=== PATIENT | male | born 1975 | race Caucasian/White ===

== ENCOUNTER → 2018-01-07 | Outpatient (CLI) | payer OTHER ==
[2018-01-07 10:22] LABS: Basophils # (A) 0.1 k/uL (0-0.2); Basophils % (A) 1 %; Eosinophils # (A) 0.3 k/uL (0-0.7); Eosinophils % (A) 3 %; HCT 43.3 % (39.0-53.0); HGB 14.6 gm/dL (13.0-17.5); Lymphocytes # (A) 2.3 k/uL (1.0-4.8); Lymphocytes % (A) 26 %; MCH 32.4 pg (25.0-35.0); MCHC 33.6 g/dL (31.0-37.0); MCV 96.6 fL (80.0-100.0); Mean Platelet Volume 7.5; Monocytes # (A) 0.5 k/uL (0-1.0); Monocytes % (A) 6 %; Neutrophils # (A) 5.4 k/uL (1.3-7.7); Neutrophils % (A) 62 %; Platelet Count 373 k/uL (150-450); RBC 4.49 m/uL (4.30-5.90); RDW 12.2 % (11.5-15.5); WBC 8.7 k/uL (3.8-10.6)
[2018-01-07 10:23] LABS: Anion Gap 13 mmol/L; Blood Urea Nitrogen 13 mg/dL (9-20); Calcium 10.1 mg/dL (8.4-10.2); Carbon Dioxide 31 mmol/L (22-30); Chloride 102 mmol/L (98-107); Glucose 84 mg/dL (74-99); Sodium 146 mmol/L (137-145)
== END | disposition home or self-care (01) ==
LOC: LABWHC1 09:43
PROVIDERS: ATTEND Orthopaedic Surgery
DX: D59.9 Acquired hemolytic anemia, unspecified (principal)
CPT/HCPCS: 36415; 80048; 85025

== ENCOUNTER 2024-04-06 13:13 | Emergency (ER) | payer SELFPAY ==
[~2024-04-06 13:13] MED LIST: EPINEPHrine 10 ML SYRINGE (0.1 MG/ML) ONE; NOREPINEPHRINE 1 MG/ML 4 ML VIAL IV ONE; SODIUM BICARB 8.4% 50 ML SYR (1 MEQ/ML) ONE; SODIUM CHLORIDE 0.9% 250 ML BAG ONE
[2024-04-06 13:20] LABS: Glucose,Whole Blood 78 mg/dL (70-110)
[2024-04-06] MEDS ORDERED: SODIUM CHLORIDE 0.9% 1,000 ML IV STA (13:25)
[2024-04-06] MEDS ORDERED: MIDAZOLAM 1 MG/ML 5 ML VIAL IV STA (13:26)
[2024-04-06] MEDS ORDERED: NOREPINEPHRINE 4 MG in SODIUM CHLORIDE 0.9% 250 ML IV ONE (13:33)
[2024-04-06 13:34] LABS: HCT 36.6 % (39.0-53.0); Hypochromasia Marked; MCH 31.1 pg (25.0-35.0); MCHC 30.1 g/dL (31.0-37.0); MCV 103.3 fL (80.0-100.0); Macrocytosis Slight; Mean Platelet Volume 8.9; Platelet Count 213 k/uL (150-450); RBC 3.54 m/uL (4.30-5.90); RDW 12.9 % (11.5-15.5)
--- NOTE | 2024-04-06 13:37 | ED ---
Trauma HPI - General Stated Complaint: Suicide Attempt Time Seen by Provider: 04/06/24 13:25 Source: RN notes reviewed, old records reviewed Mode of arrival: EMS Limitations: altered mental status, physical limitation - History of Present Illness Initial Comments: 48-year-old male to the ER for evaluation today. Patient presents today for evaluation regards to suspected suicide, patient allegedly had been going through some increased life stressors with breaking up of relationship as well as facing incarceration. Allegedly. Patient was found to have hung himself on unknown amount of time, EMS was called by neighbor Patient presents by EMS initially found without pulse did have return of spontaneous circulation and brought to the hospital MD Complaint: other -: unknown Loss of Consciousness: yes Location: neck Severity scale (1-10): 10 Consistency: constant Context: other (suicide attempt) Associated Symptoms: denies other symptoms Treatments Prior to Arrival: IV/IO, intubation, CPR, cervical collar, spinal immobilization - Related Data Allergies Allergy/AdvReac Type Severity Reaction Status Date / Time Unable to Assess Allergy Verified 04/06/24 13:41 Review of Systems ROS Statement: Those systems with pertinent positive or pertinent negative responses have been documented in the HPI. ROS Other: All systems not noted in ROS Statement are negative. General Exam - General Exam Comments Initial Comments: GCS of 3 unresponsive Significant circumferential ligature tomlinson Limitations: altered mental status, physical limitation General appearance: obtunded, in distress Head exam: Absent: atraumatic (Does have strangulation stewart around his neck), normocephalic, normal inspection Eye exam: Present: other (Fixed and dilated) Respiratory exam: Present: other (apnea) Psychiatric exam: Present: normal affect Skin exam: Present: other (Does have signs of a asphyxiation, significantly pale face) Course Vital Signs 04/06/24 04/06/24 04/06/24 13:13 13:40 13:58 Temperature 96.7 F L Fraction of 100 100 Inspired Oxygen (FIO2) - Reevaluation(s) Reevaluation #1: 04/06/24 13:50 Records reviewed Level 1 and Priority 1 trauma was paged prehospital Reevaluation #2: 04/06/24 13:51 Patient initially did again have return of spontaneous circulation here in the emergency department Patient did lose his pulse after epinephrine, bradycardia, Patient was given second round of CPR and ACLS and at this time had ventricular fibrillation No pulse pupils remained fixed and dilated Patient is pronounced with cardiac standstill on ultrasound Reevaluation #3: MDM differential Traumatic Arest, CPA Hypoxia,Hacidosis,Hypoglycemia,Hyper/oKalemia,Hypotension Trauma,TensionPtx,Thrombosis,Toxins,Tamponade Reevaluation #4: Was pt. sent in by a medical professional or institution ([facility] De Los [facility], ASSISTANT [employer]ENDER, urgent care, hospital, or fpc...) When possible be specific @ -no Did you speak to anyone other than the patient for history (EMS, parent, family, police, friend...)? What history was obtained from this source @ -no Did you review nursing and triage notes (agree or disagree)? Why? @ -agree Are old charts reviewed (outside hosp., previous admission, EMS record, old EKG, old radiological studies, urgent care reports/EKG's, fpc records)? Report findings @ -yes Differential Diagnosis (chest pain, altered mental status, abdominal pain women, abdominal pain men, vaginal bleeding, weakness, fever, dyspnea, syncope, headache, dizziness, GI bleed, back pain, seizure, CVA, palpatations, mental health, musculoskeletal)? @ -prior EKG interpreted by me (3pts min.). @ -yes X-rays interpreted by me (1pt min.). @ -yes negative for acute disease CT interpreted by me (1pt min.). @ -no U/S interpreted by me (1pt. min.). @ -no What testing was considered but not performed or refused? (CT, X-rays, U/S, labs)? Why? @ -none What meds were considered but not given or refused? Why? @ -none Did you discuss the management of the patient with other professionals (ramsse madera i.e. [facility] De Los Santos, ASSISTANT [employer] PUBLIC DEFENDER, lab, RT, psych nurse, high school social science teacher, complaint operator, teacher, audit officer, rn case manager)? Give summary @ -no Was smoking cessation discussed for >3mins.? @ -no Were there social determinants of health that impacted care today? How? (Homelessness, low income, unemployed, alcoholism, drug addiction, transportation, low edu. Level, literacy, decrease access to med. care, [facility], rehab)? @ -none Was there de-escalation of care discussed even if they declined (Discuss DNR or withdrawal of care, Hospice)? DNR status @ -no What co-morbidities impacted this encounter? (DM, HTN, Smoking, COPD, CAD, Cancer, CVA, ARF, Chemo, Hep., AIDS, mental health diagnosis, sleep apnea, morbi d obesity)? @ -none Was patient admitted / discharged? Hospital course, mention meds given and rout e, prescriptions, significant lab abnormalities, going to OR and other pertinent info. @ - Was critical care preformed (if so, how long)? @ -no Undiagnosed new problem with uncertain prognosis? @ -no Drug Therapy requiring intensive monitoring for toxicity (Heparin, Nitro, Insulin, Cardizem)? @ -no Were any procedures done? @ -no Diagnosis/symptom? @ - Acute, or Chronic, or Acute on Chronic? @ -Acute Uncomplicated (without systemic symptoms) or Complicated (systemic symptoms)? @ -Complicated Side effects of treatment? @ -no Exacerbation, Progression, or Severe Exacerbation? @ -exacerbation Poses a threat to life or bodily function? How? (Chest pain, [place], [place], pneumonia, PE, COPD, DKA, ARF, appy, cholecystitis, CVA, Diverticulitis, Homicidal, Suicidal, threat to staff... and all critical care pts) @ -yes - Consultations Consultation #1: Trauma surgery did see the patient here in the hospital and in the emergency department Consultation #2: Spoke with medical charge entry specialist Procedures - FAST Exam Fluid in Morison's pouch: No Fluid in Splenorenal Junction: No Fluid around bladder, Transverse view: No Fluid around bladder, Sagittal view: No Limited Echocardiogram view: subxiphoid (Subxiphoid exam does show cardiac contractility) Fluid in Pericardial Sac: No Gross Wall Motion Abnormality: No Study normal for this patient: Yes Images saved for further review: Yes Medical Decision Making - Medical Decision Making 49 male for level 1 priority 1 trauma elected strangulation from suicide atte mpt, hanging. Patient was able to return of spontaneous circulation after loss of pulse, brought to ER by EMS and patient will be transferred to [facility] for definitive traumatic treatment per neurology, neurosurgery - Lab Data Result diagrams: 04/06/24 13:25 04/06/24 13:25 Lab Results 04/06/24 04/06/24 04/06/24 Range/Units 13:15 13:18 13:25 WBC 8.0 (3.8-10.6) k/uL RBC 3.54 L (4.30-5.90) m/uL Hgb 11.0 L (13.0-17.5) gm/dL Hct 36.6 L (39.0-53.0) % MCV 103.3 H (80.0-100.0) fL MCH 31.1 (25.0-35.0) pg MCHC 30.1 L (31.0-37.0) g/dL RDW 12.9 (11.5-15.5) % Plt Count 213 (150-450) k/uL MPV 8.9 Neutrophils % (Manual) 49 % Band Neuts % (Manual) 3 % Lymphocytes % (Manual) 41 % Monocytes % (Manual) 6 % Eosinophils % (Manual) 1 % Neutrophils # (Manual) 4.10 (1.3-7.7) k/uL Lymphocytes # (Manual) 3.28 (1.0-4.8) k/uL Monocytes # (Manual) 0.48 (0-1.0) k/uL Eosinophils # (Manual) 0.08 (0-0.7) k/uL Nucleated RBCs 0 (0-0) /100 WBC Manual Slide Review Performed Hypochromasia Marked Macrocytosis Slight PT (10.0-12.5) sec INR (<1.2) APTT (22.0-30.0) sec Sodium (137-145) mmol/L Potassium (3.5-5.1) mmol/L Chloride (98-107) mmol/L Carbon Dioxide (22-30) mmol/L Anion Gap mmol/L BUN (9-20) mg/dL Creatinine (0.66-1.25) mg/dL Est GFR (CKD-EPI)AfAm (>60 ml/min/1.73 sqM) Est GFR (CKD-EPI)NonAf (>60 ml/min/1.73 sqM) Glucose (74-99) mg/dL POC Glucose (mg/dL) 78 (70-110) mg/dL POC Glu Junior Software Engineer ID Leyda Ulloa Lactic Ac Sepsis Rflx Plasma Lactic Acid Sunday (0.7-2.0) mmol/L Calcium (8.4-10.2) mg/dL Total Bilirubin (0.2-1.3) mg/dL AST (17-59) U/L ALT (4-49) U/L Alkaline Phosphatase (38-126) U/L Troponin I (0.000-0.034) ng/mL Total Protein (6.3-8.2) g/dL Albumin (3.5-5.0) g/dL Serum Alcohol mg/dL Blood Type Blood Type Confirm O Positive Blood Type Recheck Bld Type Recheck Status Antibody Screen Spec Expiration Date 04/06/24 04/06/24 04/06/24 Range/Units 13:25 13:25 13:25 WBC (3.8-10.6) k/uL RBC (4.30-5.90) m/uL Hgb (13.0-17.5) gm/dL Hct (39.0-53.0) % MCV (80.0-100.0) fL MCH (25.0-35.0) pg MCHC (31.0-37.0) g/dL RDW (11.5-15.5) % Plt Count (150-450) k/uL MPV Neutrophils % (Manual) % Band Neuts % (Manual) % Lymphocytes % (Manual) % Monocytes % (Manual) % Eosinophils % (Manual) % Neutrophils # (Manual) (1.3-7.7) k/uL Lymphocytes # (Manual) (1.0-4.8) k/uL Monocytes # (Manual) (0-1.0) k/uL Eosinophils # (Manual) (0-0.7) k/uL Nucleated RBCs (0-0) /100 WBC Manual Slide Review Hypochromasia Macrocytosis PT 15.1 H (10.0-12.5) sec INR 1.5 H (<1.2) APTT 59.9 H (22.0-30.0) sec Sodium 147 H (137-145) mmol/L Potassium 3.8 (3.5-5.1) mmol/L Chloride 112 H (98-107) mmol/L Carbon Dioxide 19 L (22-30) mmol/L Anion Gap 16 mmol/L BUN 12 (9-20) mg/dL Creatinine 0.78 (0.66-1.25) mg/dL Est GFR (CKD-EPI)AfAm >90 (>60 ml/min/1.73 sqM) Est GFR (CKD-EPI)NonAf >90 (>60 ml/min/1.73 sqM) Glucose 199 H (74-99) mg/dL POC Glucose (mg/dL) (70-110) mg/dL POC Glu Junior Software Engineer ID Lactic Ac Sepsis Rflx Plasma Lactic Acid Sunday 11.0 H* (0.7-2.0) mmol/L Calcium 6.7 L (8.4-10.2) mg/dL Total Bilirubin 0.5 (0.2-1.3) mg/dL AST 131 H (17-59) U/L ALT 107 H (4-49) U/L Alkaline Phosphatase 45 (38-126) U/L Troponin I (0.000-0.034) ng/mL Total Protein 4.5 L (6.3-8.2) g/dL Albumin 2.5 L (3.5-5.0) g/dL Serum Alcohol <10 mg/dL Blood Type Blood Type Confirm Blood Type Recheck Bld Type Recheck Status Antibody Screen Spec Expiration Date 04/06/24 04/06/24 04/06/24 Range/Units 13:25 13:25 13:46 WBC (3.8-10.6) k/uL RBC (4.30-5.90) m/uL Hgb (13.0-17.5) gm/dL Hct (39.0-53.0) % MCV (80.0-100.0) fL MCH (25.0-35.0) pg MCHC (31.0-37.0) g/dL RDW (11.5-15.5) % Plt Count (150-450) k/uL MPV Neutrophils % (Manual) % Band Neuts % (Manual) % Lymphocytes % (Manual) % Monocytes % (Manual) % Eosinophils % (Manual) % Neutrophils # (Manual) (1.3-7.7) k/uL Lymphocytes # (Manual) (1.0-4.8) k/uL Monocytes # (Manual) (0-1.0) k/uL Eosinophils # (Manual) (0-0.7) k/uL Nucleated RBCs (0-0) /100 WBC Manual Slide Review Hypochromasia Macrocytosis PT (10.0-12.5) sec INR (<1.2) APTT (22.0-30.0) sec Sodium (137-145) mmol/L Potassium (3.5-5.1) mmol/L Chloride (98-107) mmol/L Carbon Dioxide (22-30) mmol/L Anion Gap mmol/L BUN (9-20) mg/dL Creatinine (0.66-1.25) mg/dL Est GFR (CKD-EPI)AfAm (>60 ml/min/1.73 sqM) Est GFR (CKD-EPI)NonAf (>60 ml/min/1.73 sqM) Glucose (74-99) mg/dL POC Glucose (mg/dL) (70-110) mg/dL POC Glu Junior Software Engineer ID Lactic Ac Sepsis Rflx Y Plasma Lactic Acid Sunday (0.7-2.0) mmol/L Calcium (8.4-10.2) mg/dL Total Bilirubin (0.2-1.3) mg/dL AST (17-59) U/L ALT (4-49) U/L Alkaline Phosphatase (38-126) U/L Troponin I <0.012 (0.000-0.034) ng/mL Total Protein (6.3-8.2) g/dL Albumin (3.5-5.0) g/dL Serum Alcohol mg/dL Blood Type O Positive Blood Type Confirm Blood Type Recheck No Previous Record Bld Type Recheck Status CABO Indicated Antibody Screen NEGATIVE Spec Expiration Date 04/09/2024 - 6902 - Radiology Data Radiology results: report reviewed (X-ray chest and positive for trauma negative for traumatic injury), image reviewed Critical Care Time Critical Care Time: Yes Total Critical Care Time: 31 Disposition Clinical Impression: Cardiac arrest, PEA (Pulseless electrical activity), Asphyxiation and strangulation, Ventricular fibrillation, Suicide Disposition: Condition: Critical Is patient prescribed a controlled substance at d/c from ED?: No Referrals: None,Stated [Primary Care Provider] - 1-2 days Time of Disposition: 14:00 Preliminary Cause of : CPA,Ashpyxiation
[2024-04-06 13:41] VITALS: TEMP 96.7
--- NOTE | 2024-04-06 13:46 | XR ---
EXAMINATION TYPE: XR chest 1V portable DATE OF EXAM: 04/06/2024 1:38 PM COMPARISON: None TECHNIQUE: XR chest 1V portable Portable AP radiograph of the chest. CLINICAL INDICATION:Male, 48 years old with history of trauma; FINDINGS: Lungs/Pleura: There is no evidence of pleural effusion, focal consolidation, or pneumothorax. Pulmonary vascularity: Unremarkable. Heart/mediastinum: Cardiomediastinal silhouette is unremarkable. Musculoskeletal: No acute osseous pathology. Other findings: None Lines/Tubes: Endotracheal tube with distal tip at the level of the clavicular heads approximate 10 cm above the ca shea. IMPRESSION: Endotracheal tube with distal tip approximately 10 cm above the reyna. Recommend advancement of 6 cm . Otherwise no acute process.
[2024-04-06 13:50] LABS: ALT 107 U/L (4-49); AST 131 U/L (17-59); African American GFR (CKD) >90 (>60 ml/min/1.73 sqM); Albumin 2.5 g/dL (3.5-5.0); Alcohol <10 mg/dL; Alkaline Phosphatase 45 U/L (38-126); Anion Gap 16 mmol/L; Blood Urea Nitrogen 12 mg/dL (9-20); Calcium 6.7 mg/dL (8.4-10.2); Carbon Dioxide 19 mmol/L (22-30); Chloride 112 mmol/L (98-107); Glucose 199 mg/dL (74-99); Non-African American GFR(CKD) >90 (>60 ml/min/1.73 sqM); Potassium 3.8 mmol/L (3.5-5.1); Sodium 147 mmol/L (137-145); Total Bilirubin 0.5 mg/dL (0.2-1.3); Total Protein 4.5 g/dL (6.3-8.2)
[2024-04-06 13:58] LABS: INR 1.5 (<1.2); Prothrombin Time 15.1 sec (10.0-12.5)
[2024-04-06 14:03] LABS: Band Neutrophils % 3 %; Eosinophils # (M) 0.08 k/uL (0-0.7); Lymphocytes # (M) 3.28 k/uL (1.0-4.8); Monocytes # (M) 0.48 k/uL (0-1.0); Neutrophils % (M) 49 %; Nucleated Red Blood Cells 0 /100 WBC (0-0); Total Cells Counted 100
[2024-04-06 14:11] LABS: Partial Thromboplastin Time 59.9 sec (22.0-30.0)
--- NOTE | 2024-04-07 16:35 | P.GSCN ---
History of Present Illness Consult date: 04/06/24 Reason for Consult: traumatic hanging History of present illness: is a 48-year-old male who attempted suicide by hanging. The patient had an unknown downtime. The patient was initially vital signs absent. He was then coded by EMS. Obtain a pulse. Patient is currently intubated he has obvious traumatic ligature tomlinson around his neck. Past Medical History Past Medical History: Unable to Obtain History of Any Multi-Drug Resistant Organisms: Unobtainable Past Surgical History: Unable to Obtain Past Psychological History: Unable to Obtain Smoking Status: Unknown if ever smoked Past Alcohol Use History: Unable to Obtain Past Drug Use History: Unable to Obtain Medications and Allergies Allergies Allergy/AdvReac Type Severity Reaction Status Date / Time Unable to Assess Allergy Verified 04/06/24 13:41 Surgical - Exam Vital Signs Temp 96.7 F L 04/06/24 13:13 - General Intubated, there is evidence of neck deformity well developed - Eyes pupils are fixed and dilated - ENT normal pinna, normal mucosa - Neck there is abrasions on the skin from the rope used. no masses - Respiratory normal expansion - Cardiovascular Rhythm: irregularly irregular - Abdomen Abdomen: soft, non tender Results - Labs 04/06/24 13:25 04/06/24 13:25 - Imaging Chest x-ray: report reviewed Assessment and Plan Plan: Suicide attempt by hanging. Patient eventually underwent cardiac arrest in the emergency room. He was declared by the emergency room doctor.
== END 2024-04-06 16:25 | disposition expired ==
LOC: EC 13:13
DX: I46.9 Cardiac arrest, cause unspecified (principal); M31.4 Aortic arch syndrome [Takayasu]; T71.9XXA Asphyxiation due to unspecified cause, initial encounter; I49.01 Ventricular fibrillation; T14.91XA Suicide attempt, initial encounter; T71.162A Asphyxiation due to hanging, intentional self-harm, initial encounter; Z88.8 Allergy status to other drugs, medicaments and biological substances
CPT/HCPCS: 36415; 94002; 92950; 86900; 86901; 80053; 83605; 84484; 85025; 85610; 85730; 86850; 80320; 71045; 99291; G0390; J0171